=== PATIENT | male | born 1955 | race Caucasian/White ===

== ENCOUNTER 2018-02-24 00:20 | Outpatient (CLI) | payer BC, SELFPAY ==
--- NOTE | 2018-02-24 08:35 | DI.REPORT_ITS ---
SYMPTOMS/DIAGNOSIS: NECK PAIN, M54.2, HEADACHE, H/O OA WITH ONE YEAR OF PROGRESSIVE NECK PAIN AND STIFFNESS WITH INCREASED PAIN RADIATING TO HEAD MRI OF THE CERVICAL SPINE: There are no plain films for comparison. T 1, T 2, STIR, FLAIR and T 2 3D sagittal and T 2 axial sequences were performed. The marrow signal and cord signal appear normal. There are a few small scattered hemangiomas. There is mild disc bulging at C 2 - 3 and C 3 - 4. There are facet degenerative changes, greater on the left side. There is neural foraminal narrowing on the left side at C 4 - 5 secondary to a combination of degenerative changes. There is mild disc bulging at C 5 - 6. There is slight more prominent disc osteophytes at C 6 - 7 effacing the CSF space. There is no evidence of disc herniation at any level. IMPRESSION: Left neural foraminal narrowing at C 4 - 5. Mild degenerative disc changes are seen throughout. Facet degenerative changes are also present.
== END 2018-02-24 00:21 ==
PROVIDERS: PCP Family Medicine; Visit Provider Family Medicine
DX: M54.2 Cervicalgia (principal); M47.812 Spondylosis without myelopathy or radiculopathy, cervical region; M50.322 Other cervical disc degeneration at C5-C6 level
CPT/HCPCS: 72141

== ENCOUNTER 2018-12-31 09:19 | Outpatient (REF) | payer BC, SELFPAY ==
[2018-12-31 13:55] LABS: Anion Gap 9.1 mmol/L (3-11); BUN 13 mg/dL (7-18); CO2 26.9 mmol/L (21.0-32.0); CREATININE 0.82 mg/dL (0.70-1.30); Calcium 9.1 mg/dL (8.5-10.1); Calculated LDL 122; Chloride 103 mmol/L (98-107); Cholesterol 219 mg/dL (50-200); Glucose 97 mg/dL (70-100); HDL Cholesterol 38 mg/dL (40-60); Potassium 4.3 mmol/L (3.5-5.1); Sodium 139 mmol/L (136-145); Triglyceride 297 mg/dL (30-150)
[2019-01-01 10:14] LABS: PSA, Screening 1.1 ng/ml (0-4.5)
== END 2018-12-31 09:39 ==
LOC: NCHCN 09:19
PROVIDERS: PCP Family Medicine; Visit Provider Family Medicine
DX: Z00.00 Encounter for general adult medical examination without abnormal findings (principal); E78.5 Hyperlipidemia, unspecified; M10.9 Gout, unspecified; Z12.5 Encounter for screening for malignant neoplasm of prostate
CPT/HCPCS: 80048; 80061; 83721; 84153

== ENCOUNTER 2020-11-24 15:37 | Emergency (ER) | payer OTHER, SELFPAY ==
[2020-11-24] VITALS (35 sets, daily range): BP systolic 130–188; BP diastolic 75–138; PULSE 78–101; RESP 16–28; TEMP 36.3–36.9; O2SAT 93–99
--- NOTE | 2020-11-24 15:30 | RT.EKG_ITS ---
APPROVED REPORT Exam: Resting ECG Reason for Exam: shortness of breath Patient Location: E HR:90 bpm ECG Measurements Heart Rate 90 AXIS IA 158 P 51 QRSd 104 QRS 29 QT 344 T 13 QTc 422 Conclusion Sinus rhythm...normal P axis, V-rate 60- 99
--- NOTE | 2020-11-24 15:45 | DI.CT_ITS ---
Exam(s) CT CHEST/ABD/PEL W EXAM: CT CHEST/ABD/PEL W CLINICAL HISTORY: fall 3 feet into hole, right sided pain, dec lung. TECHNIQUE: Imaging Protocol: Axial computed tomography images with coronal and sagittal reformatted images were created and reviewed CONTRAST MATERIAL: Intravenous: Omnipaque 350 Contrast volume:100 ml Oral: no COMPARISON: CR XR PORTABLE CHEST AP from 11/24/2020 CR XR PORTABLE CHEST AP from 11/24/2020 FINDINGS: CHEST: Thyroid: Normal where visualized. Tracheobronchial tree: Patent where visualized. Mediastinum and Aura: No dominant adenopathy or fluid collection. Pulmonary parenchyma: No consolidation or dominant measurable mass. Emphysematous changes in the upp er lobes, right greater than left. Dependent changes at the lung bases. Pleura: No effusion or pneumothorax. Lymph nodes: Within normal limits. Aorta: Thoracic portion non-dilated. Moderate calcification. Heart: Mild left ventricular and left atrial enlargement. Moderate coronary artery calcifications. Bones: Degenerative changes and scoliosis ABDOMEN: Liver: Normal density. No measurable mass. Gallbladder and biliary tract: No radiodense calculus or dilation. Pancreas: Normal density, no abnormal calcifications or inflammatory process. Spleen: Normal. Kidneys: Normal size, contour and axis. No radiodense stones or obstructive uropathy. No masses seen. Adrenal glands: No masses seen. Aorta: Abdominal portion non-dilated. Lymph nodes: Within normal limits. PELVIS: Bladder: Symmetric distention, no gross wall thickening. Bowel: No obstruction or bowel wall thickening. Sigmoid diverticulosis. No evidence of diverticulit is. Peritoneal cavity: No ascites, collection or mesenteric inflammatory response. Bones: No fracture. Degenerative changes. Reproductive organs: Within normal limits. IMPRESSION: No acute abnormality. RADIATION DOSE DELIVERED: 1,198.21mGy.cm Total DLP DATA REPOSITORY: All CT scans at this facility are submitted to the National Radiology Data Registry (NRDR) Dose Index Registry (DIR) with the [employer] ([employer]). RADIATION OPTIMIZATION: All CT scans at this facility use at least one of these dose optimization te chniques: automated exposure control; mA and/or kV adjustment per patient size (includes targeted exa ms where dose is matched to clinical indication); or iterative reconstruction.
--- NOTE | 2020-11-24 15:45 | DI.RAD_ITS ---
Exam(s) XR PORTABLE CHEST AP EXAM: XR PORTABLE CHEST AP CLINICAL HISTORY: right chest pain, fall, dim lung. TECHNIQUE: 2D digital imaging was performed. COMPARISON: CR from 03/13/2016 FINDINGS: Heart size upper normal. Mediastinum not grossly widened. No confluent infiltrates nor pneumothorax evident on this portable view given the trauma history here and no obvious pleural effusions. No obvious fractures evident IMPRESSION: No acute pulmonary findings on this single AP portable view of the chest. No pneumothorax seen DATA REPOSITORY: RADIATION DOSE DELIVERED: All CT scans at this facility use at least one of these dose optimization techniques: automated exposure control; mA and/or kV adjustment per patient size (includes targeted e xams where dose is matched to clinical indication); or iterative reconstruction.
--- NOTE | 2020-11-24 15:45 | DI.CT_ITS ---
Exam(s) CT HEAD CERVICAL SPINE WO EXAM: CT HEAD CERVICAL SPINE WO CLINICAL HISTORY: fall into hole, distracting injury. TECHNIQUE: Imaging Protocol: Axial computed tomography images with coronal and sagittal reformatted images were created and reviewed COMPARISON: No exams were available for comparison FINDINGS: Head CT Ventricles and Extra axial spaces: Normal in size and morphology for the patient's age. Hemorrhage: None. Cerebral parenchyma: Mild atrophy. Old lacunar infarct right basal ganglia. No acute infarct. Midline shift: None. Brainstem/Cerebellum: Normal. Calvarium: Normal. Visualized Paranasal sinuses/Mastoids: Clear. Cervical Spine CT BONES: Vertebral body heights are maintained. Alignment is normal. There is no evidence of acute frac ture. Degenerative disc changes and facet degenerative changes are seen . SOFT TISSUES: No paraspinal hematoma. The airway appears intact. No pneumothorax is seen at the lung apices. There is some scarring and emphysematous changes. Calci fication is seen at the common carotid bulbs. IMPRESSION: Head CT: No acute abnormality.Old right basal ganglia lacunar infarct. C-spine CT: Degenerative changes, no acute abnormality. RADIATION DOSE DELIVERED: LINK-TO-SR Total DLP DATA REPOSITORY: All CT scans at this facility are submitted to the National Radiology Data Registry (NRDR) Dose Index Registry (DIR) with the [employer] ([employer]). RADIATION OPTIMIZATION: All CT scans at this facility use at least one of these dose optimization te chniques: automated exposure control; mA and/or kV adjustment per patient size (includes targeted exa ms where dose is matched to clinical indication); or iterative reconstruction.
[2020-11-24] MEDS: fentaNYL 100 MCG/2 ML VIAL 50 MCG IVP (15:59)
[2020-11-24 16:07] LABS: Abs Immature Grans 0.06 10^3/uL (0.0-0.06); Absolute Basophil Count 0.03 10^3/uL (0.0-0.2); Absolute Eosinophil Count 0.17 10^3/uL (0.0-0.7); Absolute Lymphocyte Count 1.48 10^3/uL (1.2-3.4); Absolute Monocyte Count 0.79 10^3/uL (0.1-0.8); Absolute Neutrophil Count 8.01 10^3/uL (1.2-6.7); Basophils % 0.3; Eosinophils % 1.6; HCT 42.7 % (40.0-50.0); HGB 15.4 g/dL (13.5-17.5); Immature Grans % 0.6; MCH 33.3 pg (27.0-33.0); MCHC 36.1 % (32.0-36.0); MCV 92.2 fL (80-95); MPV 10.5 fL (8.0-11.0); Monocytes % 7.5; Nucleated RBC 0 %; Platelet Count 241 10^3/uL (130-400); RBC 4.63 10^6/uL (4.36-5.78); RDW 11.9 % (11.8-14.1); RDW-SD 39.9 fL; WBC 10.54 10^3/uL (4.4-10.8)
--- NOTE | 2020-11-24 16:11 | ED.GENADUL_ITS ---
Discharge Plan Disposition Patient Disposition: HOME Condition: Stable Discharge Details Clinical Impression: Fall, Contusion of rib on right side Primary Care Provider: Rigo Ruvalcaba ED Provider: Servando Alex Home Meds and New Rx's Prescriptions: Continued multivitamin 1 EACH tablet 1 ea PO DAILY RF: 0 ibuprofen 200 MG capsule 600 mg PO Q6H PRN RF: 0 omeprazole 20 MG capsule,delayed release(DR/EC) 20 mg PO DAILY RF: 0 allopurinol 300 MG tablet 300 mg PO DAILY RF: 0 cholecalciferol (vitamin D3) [Vitamin D3] 2,000 UNIT capsule 1 tab PO DAILY RF: 0 Discharge Instructions Instructions: How to Use an Incentive Spirometer (ED), Rib Contusion (ED) Additional Instructions: Please take ibuprofen over the counter. Take 600mg by mouth every 6 hours as needed for pain. Please take acetaminophen (tylenol) - 650mg every 6 hours by mouth as needed for pain. Please use incentive spirometer every 2-3 hours while awake for the next week. Please contact your primary care physician to arrange follow-up. Return to the ER for any worsening or new concerning symptoms. Stand Alone Forms: Work Release Referrals: Rigo Ruvalcaba [Primary Care Provider] - Discharge Data Discharge Date/Time-TO BE ENTERED AT DEPARTURE: 11/24/20 19:25 Medical Decision Making <ANN Pedro - Last Filed: 11/25/20 09:01> Patient had a chest x-ray that does not show evidence of acute pneumo thorax, I discussed with Dr. Serrano radiology, after receiving fentanyl, patient is resting more comfortably in the room, will order CT chest abdomen pelvis, head and neck given injury which is likely distracting Care will be signed out to Dr. Alex pending CT imaging interpretation and diagnostic blood work at 1630 Tetanus will be updated Differential Diagnosis Differential Diagnosis: rib fracture, flail chest, pneumothorax, intra- abdominal trauma Medical Records Medical records reviewed: Yes I reviewed the patient's medical records. <Servando Alex MD - Last Filed: 11/29/20 22:17> Care signed out by ANN Bagley with plan to followup on CT imaging and labs. Screening ECG was reviewed and interpreted by me: Screening ECG was reviewed and interpreted by me: Sinus rhythm 90 bpm, normal axis, nondiagnostic. CT of the head was interpreted by radiology:FINDINGS: Brain: Mild age appropriate cerebral atrophy. No intracranial hemorrhage. RIGHT basal ganglia chronic lacunar infarct. Small chronic infarct in the LEFT occipital lobe versus prominent sulcus. No extra-axial collections. No mass or midline. No cerebral edema. Normal bridges-white differentiation. No large acute territorial infarct. Cerebral ventricles: The ventricles are normal in position. No hydrocephalus. Bones/joints: No acute fracture. No focal osseous lesions. Paranasal sinuses: The visualized paranasal sinuses are well-aerated. There are no air fluid levels to suggest acute sinusitis. Mastoid air cells: The tympanomastoid air cells are normally aerated as visualized. Orbital cavity: The orbits are unremarkable as visualized. Vasculature: Intracranial arterial calcification is present. Soft tissues: The soft tissues are unremarkable. IMPRESSION: 1. No acute intracranial findings. 2. Chronic changes as discussed above. CT of the head was interpreted by radiology: FINDINGS: Bones/joints: No acute fracture or traumatic dislocation. No focal osseous lesions. Multilevel degenerative changes of the cervical spine. No central spinal canal stenosis. Mild foraminal stenosis on the left at C3-C4 and C4-C5, bilaterally at C5-C6, and on the right at C6-C7. Discs/Spinal canal/Neural foramina: See Bones/joints finding. Lungs: Paraseptal emphysema at the lung apices. Vasculature: Extensive calcification of the common carotid arteries. Soft tissues: Soft tissues are unremarkable. IMPRESSION: 1. Degenerative changes of the cervical spine. No acute osseous findings. 2. Additional incidental/nonemergent findings as discussed above. CT of the chest was interpreted by radiology: IMPRESSION: Arteriosclerotic changes of the aorta. Coronary artery calcifications. Emphysematous changes as above. Osseous findings as above. CT of the was interpreted by radiology: Iabd/pelvMPRESSION: FINDINGS: Liver: The liver is within normal limits. Gallbladder and bile ducts: The gallbladder is unremarkable.? Pancreas: The pancreas is unremarkable. Spleen: The spleen is within normal limits. Adrenal glands: The adrenal glands are unremarkable. Kidneys and ureters: The kidneys are within normal limits. Stomach and bowel: There are diverticulum of the colon. Appendix: No evidence of appendicitis. Intraperitoneal space: Unremarkable. No free air. No significant fluid collection. Vasculature: There are arteriosclerotic changes of the aorta. Lymph nodes:? No enlarged lymph nodes. Urinary bladder: The urinary bladder is within normal limits. Reproductive: The prostate and seminal vesicles are within normal limits. The patient is status post bilateral vasectomies. Bones/joints: There are degenerative changes of the lumbar spine. There are degenerative changes of both hips. Soft tissues: Unremarkable. IMPRESSION: Arteriosclerotic changes of the aorta. Osseous findings as above. All results were discussed with the patient. I advised him to follow-up with his primary care physician regarding calcifications in his carotid, aortic atherosclerotic changes and other incidental findings. Copies of radiology reports were provided to the patient. Tetanus vaccine was provided the patient to update tetanus vaccination. Toradol 15 mg IV was administered to the patient for pain. Lidocaine patch was also applied. Patient was encouraged to follow-up with primary care physician return for any worsening or new concerning symptoms. Lab Data Lab results reviewed: Yes I reviewed the patient's lab results. HPI <ANN Pedro - Last Filed: 11/25/20 09:01> General Mode of arrival: ambulatory . Date/Time Provider Initiated Documentation: 11/24/20 15:42 . Limitations to Documentation: no limitations . Information obtained by: patient . HPI Narrative: This 65-year-old male presents with report of fall approximately ankle. He was walking on the ground when he accidentally tripped and fell into the bathroom and [place] He denies loss of consciousness. He feels short of breath and is in pain. Event occurred half hour prior to arrival. He denies head injury or loss of consciousness. Pain is to his entire right thorax. He denies any history of COPD, dizziness, weakness. Follow-up Related Data Home Medications Medication Instructions Recorded Confirmed allopurinol 300 mg PO DAILY tab-cap 11/11/14 11/24/20 ibuprofen 600 mg PO Q6H PRN tab-cap 11/11/14 11/24/20 multivitamin 1 ea PO DAILY 11/11/14 11/24/20 omeprazole 20 mg PO DAILY tab-cap 11/11/14 11/24/20 cholecalciferol (vitamin D3) 1 tab PO DAILY 12/17/14 11/24/20 [Vitamin D3] Allergies Allergy/AdvReac Type Severity Reaction Status Date / Time Penicillins Allergy unknown Unverified 11/24/20 15:43 General Stated Complaint: Trauma MIKE: 2 <Servando Alex MD - Last Filed: 11/29/20 22:17> General Mode of arrival: EMS . Limitations to Documentation: no limitations . Information obtained by: patient and EMS . Review of Systems <ANN Pedro - Last Filed: 11/25/20 09:01> Narrative: Review of systems obtained times 7 aside from where indicated in HPI PFSH <ANN Pedro - Last Filed: 11/25/20 09:01> Medical History (Updated 11/24/20 @ 18:53 by Servando Alex MD) Gout Hyperlipidemia Subclinical hypothyroidism Surgical History (Updated [facility]/30/18 @ 14:33 [facility] Colonoscopy - IV Sedation Repair of inguinal hernia right Family History Mother Personal history of malignant neoplasm Throat cancer Sister Personal history of malignant neoplasm ovarian cancer Brother Personal history of malignant neoplasm mesothelioma Social History Smoking/Tobacco Use Status: Former Tobacco Use Smoking risk assessment performed?: Yes Alcohol Intake: current Alcohol Intake frequency: a few times a month Drug use: Never Substance use type: does not use Do you feel safe at home: Yes Do you feel safe in your relationship?: Yes Exam <ANN Pedro - Last Filed: 11/25/20 09:01> Const General: cooperative and acute distress HENMT Head: normal to inspection Other: No visible sign of trauma Eyes Pupils: PERRL Neck Other: No midline tenderness Chest Other: Tenderness with palpation over right lateral chest wall and anterior lower chest wall, no crepitus Resp Effort & Inspection: audible wheezes Auscultation: diminished lung sounds Cardio Rate: regular rate Rhythm: regular rhythm GI Other: Right upper quadrant abdominal tenderness, abrasion Back/Spine/Pelvis Back: No CVA tenderness Other: Abrasions noted to right flank, nontender Neuro General: patient alert and patient oriented x3 Cranial Nerves: CN's II-XI intact bilaterally Other: GCS 15, alert and oriented x4, strength and sensation intact distally Extrem Other: Abrasions noted to left lower extremity Neurovascularly intact Course <ANN Pedro - Last Filed: 11/25/20 09:01> Vital Signs Vital signs: Vital Signs Temperature 36.3 C L 11/24/20 15:40 Pulse 101 H 11/24/20 15:40 Respiratory Rate 28 H 11/24/20 15:40 Blood Pressure 172/105 H 11/24/20 15:40 Pulse Oximetry 95 11/24/20 15:40 Temperature 36.3 C L 11/24/20 15:40 Temperature Source Skin 11/24/20 15:40 Pulse 101 H 11/24/20 15:40 Respiratory Rate 28 H 11/24/20 15:40 Respiratory Effort 11/24/20 15:52 Respiratory Depth Shallow 11/24/20 15:52 Blood Pressure 172/105 H 11/24/20 15:40 Blood Pressure Position Sitting 11/24/20 15:40 Pulse Oximetry 98 11/24/20 15:47 Oxygen Delivery Method Nasal Cannula 11/24/20 15:47 Oxygen Flow Rate 1.5 11/24/20 15:47 Pain Level 9 11/24/20 15:59 Lab/Test Results Lab/Test Results: Laboratory Tests Range/Units 11/24/20 15:48 WBC (4.4-10.8) 10^3/uL 10.54 RBC (4.36-5.78) 10^6/uL 4.63 Hgb (13.5-17.5) g/dL 15.4 Hct (40.0-50.0) % 42.7 MCV (80-95) fL 92.2 MCH (27.0-33.0) pg 33.3 H MCHC (32.0-36.0) % 36.1 H RDW (11.8-14.1) % 11.9 Plt Count (130-400) 10^3/uL 241 MPV (8.0-11.0) fL 10.5 Immature Gran % 0.6 Neutrophils % 76.0 Lymphocytes % 14.0 Monocytes % 7.5 Eosinophils % 1.6 Basophils % 0.3 Nucleated RBC % % 0 Absolute Neutrophils (1.2-6.7) 10^3/uL 8.01 H Absolute Lymphocytes (1.2-3.4) 10^3/uL 1.48 Absolute Monocytes (0.1-0.8) 10^3/uL 0.79 Absolute Eosinophils (0.0-0.7) 10^3/uL 0.17 Absolute Basophils (0.0-0.2) 10^3/uL 0.03 Sign Out <ANN Pedro - Last Filed: 11/25/20 09:01> Sign Out Data: Sign Out Comment: pending ct interpretation and labs Last updated by Callie Bagley PA at 11/24/20 16:35
[2020-11-24 16:20] LABS: ALT 38 U/L (16-63); AST 27 U/L (15-37); Albumin 4.2 g/dL (3.4-5.0); Alkaline Phosphatase 75 U/L (46-116); Anion Gap 4.4 mmol/L (3-11); BUN 28 mg/dL (7-18); Bilirubin, Total 0.9 mg/dL (0.2-1.0); CO2 32.6 mmol/L (21.0-32.0); CREATININE 0.9 mg/dL (0.70-1.30); Calcium 9.2 mg/dL (8.5-10.1); Chloride 104 mmol/L (98-107); Glucose 137 mg/dL (74-106); Sodium 141 mmol/L (136-145); Total Protein 7.6 g/dL (6.4-8.2)
[2020-11-24] MEDS: Omnipaque 350 MG/ML 100 ML BTL IJ (16:24)
[2020-11-24] MEDS: Normal Saline - Diluent 50 ML VIAL IV (16:24)
[2020-11-24] MEDS: Lidocaine 5% Patch 1 PATCH (16:40)
--- NOTE | 2020-11-24 16:53 | DI.VRAD_ITS ---
PROCEDURE INFORMATION: Exam: CT Head Without Contrast Exam date and time: 11/24/2020 3:53 PM Age: 65 years old Clinical indication: Other: Trauma, fall; Other: Trauma fall TECHNIQUE: Imaging protocol: Computed tomography of the head without contrast. Radiation optimization: All CT scans at this facility use at least one of these dose optimization techniques: automated exposure control; mA and/or kV adjustment per patient size (includes targeted exams where dose is matched to clinical indication); or iterative reconstruction. COMPARISON: No relevant prior studies available. FINDINGS: Brain: Mild age appropriate cerebral atrophy. No intracranial hemorrhage. RIGHT basal ganglia chronic lacunar infarct. Small chronic infarct in the LEFT occipital lobe versus prominent sulcus. No extra-axial collections. No mass or midline. No cerebral edema. Normal bridges-white differentiation. No large acute territorial infarct. Cerebral ventricles: The ventricles are normal in position. No hydrocephalus. Bones/joints: No acute fracture. No focal osseous lesions. Paranasal sinuses: The visualized paranasal sinuses are well-aerated. There are no air fluid levels to suggest acute sinusitis. Mastoid air cells: The tympanomastoid air cells are normally aerated as visualized. Orbital cavity: The orbits are unremarkable as visualized. Vasculature: Intracranial arterial calcification is present. Soft tissues: The soft tissues are unremarkable. IMPRESSION: 1. No acute intracranial findings. 2. Chronic changes as discussed above. PROCEDURE INFORMATION: Exam: CT Cervical Spine Without Contrast Exam date and time: 11/24/2020 3:53 PM Age: 65 years old Clinical indication: Other: Trauma, fall; Other: Trauma fall TECHNIQUE: Imaging protocol: Computed tomography images of the cervical spine without contrast. Radiation optimization: All CT scans at this facility use at least one of these dose optimization techniques: automated exposure control; mA and/or kV adjustment per patient size (includes targeted exams where dose is matched to clinical indication); or iterative reconstruction. COMPARISON: No relevant prior studies available. FINDINGS: Bones/joints: No acute fracture or traumatic dislocation. No focal osseous lesions. Multilevel degenerative changes of the cervical spine. No central spinal canal stenosis. Mild foraminal stenosis on the left at C3-C4 and C4-C5, bilaterally at C5-C6, and on the right at C6-C7. Discs/Spinal canal/Neural foramina: See Bones/joints finding. Lungs: Paraseptal emphysema at the lung apices. Vasculature: Extensive calcification of the common carotid arteries. Soft tissues: Soft tissues are unremarkable. IMPRESSION: 1. Degenerative changes of the cervical spine. No acute osseous findings. 2. Additional incidental/nonemergent findings as discussed above. Dictated and Authenticated by: Yvrose Jara MD. Ordering:BINH Ledesma MD
--- NOTE | 2020-11-24 17:16 | DI.VRAD_ITS ---
PROCEDURE INFORMATION: Exam: CT Chest With Contrast; Diagnostic Exam date and time: 11/24/2020 4:19 PM Age: 65 years old Clinical indication: Other: RT sided pain; Angina and other: RT sided cp S/P fall. TECHNIQUE: Imaging protocol: Diagnostic computed tomography of the chest with contrast. Radiation optimization: All CT scans at this facility use at least one of these dose optimization techniques: automated exposure control; mA and/or kV adjustment per patient size (includes targeted exams where dose is matched to clinical indication); or iterative reconstruction. Contrast material: OMNIPAQUE 350; Contrast volume: 100 ml; Contrast route: INTRAVENOUS (IV); COMPARISON: No relevant prior studies available. FINDINGS: Thyroid: The thyroid gland is within normal limits. Lungs: The tracheobronchial tree is patent bilaterally. There are emphysematous changes within the right upper lobe. This is seen to a lesser extent within the left upper lobe. There are dependent atelectatic changes at the lung bases. Pleural spaces: Unremarkable. No pneumothorax. No pleural effusion. Heart: There are coronary artery calcifications. The heart and pericardium are within normal limits. Aorta: There are slight arteriosclerotic changes of the aorta. Lymph nodes: No enlarged lymph nodes. Bones/joints: There are degenerative changes of the thoracic spine. There are slight degenerative changes of both shoulders. Soft tissues: Unremarkable. IMPRESSION: Arteriosclerotic changes of the aorta. Coronary artery calcifications. Emphysematous changes as above. Osseous findings as above. PROCEDURE INFORMATION: Exam: CT Abdomen And Pelvis With Contrast Exam date and time: 11/24/2020 4:19 PM Age: 65 years old Clinical indication: Other: RT sided pain; Angina and other: RT sided cp S/P fall. TECHNIQUE: Imaging protocol: Computed tomography of the abdomen and pelvis with contrast. Contrast material: OMNIPAQUE 350; Contrast volume: 100 ml; Contrast route: INTRAVENOUS (IV); COMPARISON: No relevant prior studies available. FINDINGS: Liver: The liver is within normal limits. Gallbladder and bile ducts: The gallbladder is unremarkable. Pancreas: The pancreas is unremarkable. Spleen: The spleen is within normal limits. Adrenal glands: The adrenal glands are unremarkable. Kidneys and ureters: The kidneys are within normal limits. Stomach and bowel: There are diverticulum of the colon. Appendix: No evidence of appendicitis. Intraperitoneal space: Unremarkable. No free air. No significant fluid collection. Vasculature: There are arteriosclerotic changes of the aorta. Lymph nodes: No enlarged lymph nodes. Urinary bladder: The urinary bladder is within normal limits. Reproductive: The prostate and seminal vesicles are within normal limits. The patient is status post bilateral vasectomies. Bones/joints: There are degenerative changes of the lumbar spine. There are degenerative changes of both hips. Soft tissues: Unremarkable. IMPRESSION: Arteriosclerotic changes of the aorta. Osseous findings as above. Dictated and Authenticated by: Johnny Bledsoe MD. Ordering:BINH Ledesma MD
[2020-11-24] MEDS: Normal Saline 250 ML 1000 ML IV (18:51)
[2020-11-24] MEDS: Ketorolac 15 MG/ML VIAL IVP (18:52)
== END 2020-11-24 19:25 | disposition home or self-care (01) ==
PROVIDERS: Physician Assistant; Emergency Provider Student in an Organized Health Care Education/Training Program; PCP Family Medicine
DX: S20.211A Contusion of right front wall of thorax, initial encounter (principal); W01.0XXA Fall on same level from slipping, tripping and stumbling without subsequent striking against object, initial encounter
CPT/HCPCS: 74177; 80053; 86850; 86900; 86901; 90471; 93005; 96361; 96374; 96375; 99285; 70450; 71045; 71260; 72125; 85025; 93010; 99284; J1885; J3010; J3490

== ENCOUNTER 2020-12-14 15:14 | Outpatient (REF) | payer BC, SELFPAY ==
[2020-12-14 16:53] LABS: ALT 33 U/L (16-63); AST 23 U/L (15-37); Albumin 4.1 g/dL (3.4-5.0); Alkaline Phosphatase 80 U/L (46-116); Anion Gap 7.4 mmol/L (3-11); BUN 16 mg/dL (7-18); CO2 29.6 mmol/L (21.0-32.0); CREATININE 0.8 mg/dL (0.70-1.30); Calcium 9.1 mg/dL (8.5-10.1); Calculated LDL 129 mg/dL (<100); Chloride 104 mmol/L (98-107); Cholesterol 218 mg/dL (<200); Glucose 98 mg/dL (74-106); HDL Cholesterol 37 mg/dL (40-60); Potassium 4.5 mmol/L (3.5-5.1); Sodium 141 mmol/L (136-145); Total Protein 7.1 g/dL (6.4-8.2); Triglyceride 264 mg/dL (<150)
[2020-12-14 19:03] LABS: Uric Acid 4.7 mg/dL (3.5-7.2)
== END 2020-12-14 15:15 | disposition home or self-care (01) ==
LOC: NCHCN 15:14
PROVIDERS: PCP Family Medicine; Visit Provider Family Medicine
DX: M10.9 Gout, unspecified (principal); F10.99 Alcohol use, unspecified with unspecified alcohol-induced disorder; E78.5 Hyperlipidemia, unspecified
CPT/HCPCS: 80053; 80061; 84550

== ENCOUNTER 2021-12-18 09:30 | Outpatient (REF) | payer BC, SELFPAY ==
[2021-12-18 17:08] LABS: CREATININE 0.8 mg/dL (0.70-1.30); Calculated LDL 96 mg/dL (<100); Cholesterol 157 mg/dL (<200); Glucose 96 mg/dL (74-106); HDL Cholesterol 42 mg/dL (40-60); Triglyceride 99 mg/dL (<150)
== END 2021-12-18 09:31 | disposition home or self-care (01) ==
LOC: NCHCN 09:30
PROVIDERS: PCP Family Medicine; Visit Provider Family Medicine
DX: Z00.00 Encounter for general adult medical examination without abnormal findings (principal); Z13.1 Encounter for screening for diabetes mellitus; M10.9 Gout, unspecified; E78.5 Hyperlipidemia, unspecified; I67.9 Cerebrovascular disease, unspecified
CPT/HCPCS: 80061; 82947; 82565

== ENCOUNTER 2023-02-04 15:09 | Outpatient (REF) | payer BC, SELFPAY ==
[2023-02-04 16:57] LABS: Anion Gap 6.9 mmol/L (3-11); BUN 18 mg/dL (7-18); CO2 30.1 mmol/L (21.0-32.0); CREATININE 0.9 mg/dL (0.70-1.30); Calcium 9.5 mg/dL (8.5-10.1); Chloride 102 mmol/L (98-107); Estimated GFR 93.03 (mL/min/1.73m2); Glucose 95 mg/dL (74-106); Potassium 4.5 mmol/L (3.5-5.1); Sodium 139 mmol/L (136-145); Uric Acid 3.9 mg/dL (3.5-7.2)
== END 2023-02-04 15:10 | disposition home or self-care (01) ==
LOC: NCHCN 15:09
PROVIDERS: PCP Family Medicine; Visit Provider Family Medicine
DX: M10.9 Gout, unspecified (principal); I10 Essential (primary) hypertension
CPT/HCPCS: 80048; 84550

== ENCOUNTER 2024-01-20 13:34 | Outpatient (REF) | payer BC, SELFPAY ==
[2024-01-20 19:59] LABS: ALT 37 U/L (16-63); AST 27 U/L (15-37); Albumin 3.9 g/dL (3.4-5.0); Alkaline Phosphatase 81 U/L (46-116); Anion Gap 5.2 mmol/L (3-11); BUN 19 mg/dL (7-18); Bilirubin, Total 0.86 mg/dL (0.2-1.0); CO2 27.8 mmol/L (21.0-32.0); CREATININE 0.9 mg/dL (0.70-1.30); Calcium 9.2 mg/dL (8.5-10.1); Calculated LDL 84 mg/dL (<100); Chloride 103 mmol/L (98-107); Cholesterol 160 mg/dL (<200); Estimated GFR 92.45 (mL/min/1.73m2); Glucose 121 mg/dL (74-106); HDL Cholesterol 59 mg/dL (40-60); Potassium 4.5 mmol/L (3.5-5.1); Sodium 136 mmol/L (136-145); Total Protein 6.9 g/dL (6.4-8.2); Triglyceride 85 mg/dL (<150)
[2024-01-20 20:15] LABS: Uric Acid 4.5 mg/dL (3.5-7.2)
== END 2024-01-20 13:35 | disposition home or self-care (01) ==
LOC: NCHCN 13:34
PROVIDERS: PCP Family Medicine; Visit Provider Nurse Practitioner Family
DX: R39.89 Other symptoms and signs involving the genitourinary system (principal); I10 Essential (primary) hypertension; M10.9 Gout, unspecified; E78.5 Hyperlipidemia, unspecified
CPT/HCPCS: 80053; 80061; 84154; 84550

== ENCOUNTER 2025-01-26 17:21 | Outpatient (REF) | payer BC, SELFPAY ==
[2025-01-26 16:17] LABS: HCT 39.4 % (40.0-50.0); HGB 13.8 g/dL (13.5-17.5); MCH 32.5 pg (27.0-33.0); MCHC 35.0 % (32.0-36.0); MCV 93 fL (80-95); MPV 11.4 fL (8.0-11.0); Platelet Count 176 10^3/uL (130-400); RBC 4.24 10^6/uL (4.36-5.78); RDW 12.4 % (11.8-14.1); RDW-SD 42.3 fL; WBC 5.66 10^3/uL (4.4-10.8)
[2025-01-26 16:32] LABS: ALT 43 U/L (16-63); AST 26 U/L (15-37); Albumin 3.8 g/dL (3.4-5.0); Alkaline Phosphatase 73 U/L (46-116); Anion Gap 8.4 mmol/L (3-11); BUN 17 mg/dL (7-18); Bilirubin, Total 1.1 mg/dL (0.2-1.0); CO2 28.6 mmol/L (21.0-32.0); Calcium 8.8 mg/dL (8.5-10.1); Chloride 104 mmol/L (98-107); Estimated GFR 103.85 (mL/min/1.73m2); Glucose 77 mg/dL (74-106); Potassium 4.4 mmol/L (3.5-5.1); Sodium 141 mmol/L (136-145); Total Protein 6.5 g/dL (6.4-8.2)
[2025-01-26 22:30] LABS: PSA, Screening 0.6 ng/mL (<=6.5)
== END 2025-01-26 17:22 | disposition home or self-care (01) ==
LOC: NCHCN 17:21
PROVIDERS: PCP Nurse Practitioner Family; Visit Provider Nurse Practitioner Family
DX: I10 Essential (primary) hypertension (principal); Z12.5 Encounter for screening for malignant neoplasm of prostate; R39.9 Unspecified symptoms and signs involving the genitourinary system; R35.0 Frequency of micturition; N40.1 Benign prostatic hyperplasia with lower urinary tract symptoms
CPT/HCPCS: 80053; 84153; 85027